=== PATIENT | female | born 1975 | race Caucasian/White ===

== ENCOUNTER 2018-11-15 17:56 | Emergency (ER) | payer OTHER ==
[~2018-11-15] VITALS: Ht 152.4 cm; Wt 61.2 kg
== END 2018-11-15 22:29 | disposition home or self-care (01) ==
LOC: ER 17:56
DX: K29.60 Other gastritis without bleeding (principal); T50.995A Adverse effect of other drugs, medicaments and biological substances, initial encounter; Y92.89 Other specified places as the place of occurrence of the external cause

== ENCOUNTER 2022-10-12 23:30 | Emergency (ER) | payer OTHER ==
[~2022-10-12] VITALS: Ht 157.5 cm; Wt 63.0 kg
[2022-10-12] MEDS ORDERED: PHENAGIL TABLE1 EACH (23:45)
[2022-10-13] MEDS ORDERED: ZYNCOF 20-400120 ML PO (04:19)
[2022-10-13] MEDS ORDERED: ALLEGRA-D 12 H1 EACH PO (04:19)
== END 2022-10-13 04:28 ==
LOC: ER 23:30
DX: J10.1 Influenza due to other identified influenza virus with other respiratory manifestations (principal); Z20.822 Contact with and (suspected) exposure to COVID-19; Z91.013 Allergy to seafood